=== PATIENT | female | born 1970 | race Caucasian/White ===

== ENCOUNTER 2024-12-19 11:38 | Outpatient (CLI) | payer OTHER, SELFPAY ==
--- OUTSIDE RECORDS SUMMARY | 2024-12-20 12:54 | XMS_ITS | Clinical Summary ---
Author Organization [facility] Address [address] [place] [address] Phone Care Team Providers Care Creeler Name Role Phone FREDO TOSCANO MD Primary Care Provider [phone] Reason for Visit and Chief Complaint [facility] CENTER CHECK UP Problems Includes: Problems addressed during this encounter and other active Problems All Visits Onset Date Resolved Date Provider Condition S tatus Ovarian Cyst 06/08/2011 MILAGROS WHITE P-BC Active Last Documented On 9:16AM ; [facility] Plan of Treatment No Plan of Treatment Recorded Assessments Includes: Assessments from this encounter No Assessments Recorded Medical Equipment - Implanted Devices Includes: Current Devices No Medical Equipment Recorded Medications Includes: Medications discussed during this encounter and other current Medications Current Medications (continue as prescribed) Metoprolol Succinate ER 25 M G Oral Tablet Extended Release 24 Hour 07/07/2022 Provider: Diagnosis: 1/2 a tab daily Last Documented On 07/07/2022 9:24AM By Geri BENJAMIN ; [facility] QC Tumeric Complex 500 MG Oral Capsule 07/07/2022 Pr ovider: Diagnosis: Last Documented On 07/07/2022 9:25AM By Geri BENJAMIN ; [facility] Osteo Bi-Flex One Per Day Oral Tablet 07/07/2022 Pro vider: Diagnosis: Last Documented On 07/07/2022 9:25AM By Geri BENJAMIN ; [facility] Medications Administered Includes: Administered Medications from this encounter No Administered Medications Recorded Results Includes: Results discussed during this encounter No Results Recorded For Specified Dates History of Present Illness Includes: History of Present Illness from this encounter No History of Present Illness Recorded Social History No Social History Recorded - Smoking Status Unknown Medical History Includes: Medical History addressed during this encounter No Medical History Recorded Family History Includes: Family History addressed during this encounter No Family History Recorded Review of Systems Includes: Review of Systems from this encounter No Review of Systems Recorded Mental Status Includes: Mental Status from this encounter No Mental Status Recorded Functional Status Includes: Functional Status from this encounter No Functional Status Recorded Physical Exam Includes: Physical Exam from this encounter No Physical Exam Recorded Allergies Includes: Active Allergies Substance Type Reaction Onset Date Resolved Date Statu s Biaxin Allergy Nausea, Vomiting , Diarrhea / Diarrheal disorder 11/24/2013 Active Last Documented On 3 10:28AM ; [facility] Insurance Includes: Active Insurance Policies Plan Name Member ID Group # Subscriber Relationship Effect yennifer Dates - [facility] [id number] EDY PINTO Self Clinical Notes Includes: Clinical Notes from this encounter No Clinical Notes Recorded
--- OUTSIDE RECORDS SUMMARY | 2024-12-20 12:54 | XMS_ITS | Clinical Summary ---
Author Organization [facility] Address [address] [place] [address] Phone Care Team Providers Care Chainstitch Tunnel Elastic Operator Name Role Phone CjAlisha Refugio MARTINEZ Primary Care Provider [phone] Candido House MD Unavailable [phone] 2 Medications metoprolol Succinate (TOPROL-XL) 25 MG TABLET SR 24 HR Take 25 mg by mouth 2 times daily. Active fluticasone (FLONASE) 50 MCG/ACT Suspension 1-2 Sprays by Nasal route daily. Use in each nostril as directed. Active Boswellia-Gluco samine-Vit D (OSTEO BI-FLEX ONE PER DAY PO) Take by mouth daily as needed. Active cetirizine (ZyrTEC Allergy) 10 MG Tablet Take 10 mg by mouth daily. Active methylPREDNISol one (MEDROL DOSPACK) 4 MG Tablet Therapy PackIndications :Dizziness,Hear ing loss of right ear, unspecified hearing loss type,Pressure sensation in ear, right Use as per instructions on package. 21 Tablet Active Encounters Date Type Department Care Team Description 12/16/2024 Telephone [facility] [address] [place] [address] Candido House MD Care Management 12/10/2024 9:30 AM CDT Office Visit [facility] [address] [id number] Candido House MD Dizziness (Primary Dx); Hearing loss of right ear, unspecified hearing loss type; Pressure sensation in ear, right Discharge Disposition: Discharged to home or Selfcare 12/10/2024 Travel from Last 3 Months Social History Tobacco Use Types Packs/Day Years Used Date Smoking Tobacco: Never Smokeless Tobacco: Never Tobacco Cessation:Counseling Given: Not Answered Alcohol Use Standard Drinks/Week Comments Not Currently 0 (1 standard drink = 0.6 oz pur e alcohol) Sexually Active Control Partners Comments Yes Comments No Sex and Gender Information Value Date Recorded Sex Assigned at Not on file Legal Sex Female 11:16 PM CDT Gender Identity Not on file Sexual Orientation Not on file Last Filed Vital Signs Vital Sign Reading Time Taken Comments Blood Pressure 134/98 12/10/2024 9:37 AM CDT Pulse 81 12/10/2024 9:37 AM CDT Temperature 36.9 C (98.5 F) 12/10/2024 9:37 AM CDT Respiratory Rate - - Oxygen Saturation 100% 12/10/2024 9:37 AM CDT Inhaled Oxygen Concentration - - Weight 85.6 kg (188 lb 12.8 oz) 12/10/2024 9:37 AM CDT Height 175.3 cm (5' 9 ) 12/10/2024 9:37 AM CDT Body Mass Index 27.88 12/10/2024 9:37 AM CDT Plan of Treatment Upcoming Encounters Date Type Department Care Team (Late st Contact Info) Description 12/24/2024 10:00 AM CDT Office Visit [facility] [address] [phone] Candido House MD [address] [address] Health Maintenance Due Date Last Done Comments Hepatitis C Virus (HCV) Screening 1970 TdaP Immunization 1970 Hepatitis B Immunization (1 of 3 - 19+ 3-dose series) 02/03/1988 Colonoscopy 2014 Colorectal Cancer Screening 2014 Cologuard 2019 Immunochemical Fecal Occult Blood 2019 Pneumococcal Immunization (50+ years) (1 of 1 - PCV) 2019 Zoster Immunization (1 of 2) 2019 SARS-COV-2 Immunization (1 - 2023- season) 2024 Mammogram 12/09/2024 12/10/2023, 04/0 02/2023, 11/02/2021, Additional history exists Influenza Immunization (Season Ended) 2025 Respiratory Syncytial Virus (RSV) Immunization (Adult) (1 - 1-dose 75+ series) 02/03/2044 Meningococcal Immunization (ACWY) Aged Out No longer eligible based on patient's age to complete this topic Rotavirus Immunization Aged Out No lo nger eligible based on patient's age to complete this topic Procedures Procedure Name Priority Date/Time Associated Diagnosis Comments TYMPANOMETRY Routine 12/10/2024 9:30 AM CDT Pressure sensation in ear, right [facility] SCREENING BILATERAL DIGITAL W CAD W LEIA Routine 11/05/2017 11:59 AM CDT Encounter for screening mammogram for malignant neoplasm of breast from Last 3 Months or Most Recently Relevant to Health Maintenance Results * TYMPANOMETRY (12/10/2024 9:30 AM CDT) Narrative Miriam Barnes MA - 12/10/2024 9:30 AM CDT Candido House MD 12/10/2024 10:32 AM Tympanometry: Right ear: type A curve with normal external canal volume, -3 dapa, ipsilateral reflex absent Left ear: type A curve with normal external canal volume, 3 dapa , ipsilateral reflex absent Procedure Note Candido House MD - 12/10/2024 9:30 AM CDT Tympanometry: Right ear: type A curve with normal external canal volume, -3 dapa,ipsilateral reflex absent Left ear: type A curve with normal external canal volume, 3 dapa ,ipsilateral reflex absent Candido House MD NE - OTORHINOLARYNGOLOGIC Final Result * [facility] SCREENING BILATERAL DIGITAL W CAD W LEIA (11/05/2017 11:59 AM CDT) Anatomical Region Laterality Modality breast Bilateral Mammography 11/05/2017 11:3 6 AM CDT Narrative 11/05/2017 5:18 PM CDT - [facility] SCREENING BILATERAL DIGITAL W CAD W LEIA BILATERAL DIGITAL SCREENING MAMMOGRAM 3D/2D WITH CAD WITH MEDIOLATERAL OBLIQUE CRANIOCAUDAL: 11/05/2017 The study was acquired using digital technology and interpreted from soft copy. Current study was also evaluated with ICAD version 7.2. CLINICAL: Routine screening. Patient has no complaints. No personal history of cancer. Sister with breast cancer. COMPARISONS: Comparison is made to exams dated: 08/24/2016, 07/22/2015, and 04/30/2014 [facility]. BREAST TISSUE:The tissue of both breasts is extremely dense, which lowers the sensitivity of mammography. FINDINGS: No significant masses, calcifications, or other findings are seen in either breast. There has been no significant interval change. IMPRESSION: BI-RAD 1 NEGATIVE There is no mammographic evidence of malignancy. A 1 year screening mammogram is recommended. The patient has been or will be contacted. The patient will be entered into a reminder system with a target due date of 1 year for her next screening exam. Electronically signed by: Mart Monroe M.D. bs/hilda:11/05/2017 13:36:36 Survey Manager: Mei Ruiz(Terrence), [facility] letter sent: Normal Exam Reading location: [facility] BI-RADS: 1 Negative Procedure Note Mart Monroe MD - 11/05/2017 - [facility] SCREENING BILATERAL DIGITAL W CAD W LEIA BILATERAL DIGITAL SCREENING MAMMOGRAM 3D/2D WITH CAD WITH MEDIOLATERAL OBLIQUE CRANIOCAUDAL: 11/05/2017 The study was acquired using digital technology and interpreted from soft copy. Current study was also evaluated with ICAD version 7.2. CLINICAL: Routine screening. Patient has no complaints. No personal history of cancer. Sister with breast cancer. COMPARISONS: Comparison is made to exams dated: 08/24/2016, 07/22/2015, and 04/30/2014 [facility]. BREAST TISSUE:The tissue of both breasts is extremely dense, which lowers the sensitivity of mammography. FINDINGS: No significant masses, calcifications, or other findings are seen in either breast. There has been no significant interval change. IMPRESSION: BI-RAD 1 NEGATIVE There is no mammographic evidence of malignancy. A 1 year screening mammogram is recommended. The patient has been or will be contacted. The patient will be entered into a reminder system with a target due date of 1 year for her next screening exam. Electronically signed by: Mart Monroe M.D. bs/penrad:11/05/2017 13:36:36 Survey Manager: Mei Ruiz(R), [facility] letter sent: Normal Exam Reading location: [facility] BI-RADS: 1 Negative Teressa Flowers MD IMG MAMMO ORDERABLE S Final Result from Last 3 Months or Most Recently Relevant to Health Maintenance Insurance MEDICAID [employer] Care Teams Chainstitch Tunnel Elastic Operator Relationship Specialty Start Date End Date Alisha Corona PAC [address] [place] [address] PCP - General Family Medicine 09/24/19 [place] [address] Consulting Physician Otolaryngology 12/09/24
--- OUTSIDE RECORDS SUMMARY | 2024-12-20 12:54 | XMS_ITS | Clinical Summary ---
Author Organization [facility] Address [address] [place] [address] Phone Care Team Providers Care Business Account Specialist Name Role Phone FREDO TOSCANO MD Primary Care Provider [phone] Reason for Visit and Chief Complaint The Chief Complaint is: pt had sinus issues since last Sunday, pt took OTC medication and was feeling better. Yesterday she started to have left ear pain Problems Includes: Problems addressed during this encounter and other active Problems All Visits Onset Date Resolved Date Provider Condition S tatus Ovarian Cyst 06/08/2011 MILAGROS HERBERT Active Last Documented On 2 9:16AM ; [facility] Plan of Treatment No Plan of Treatment Recorded Assessments Includes: Assessments from this encounter Findings - [J32.9 - Chronic sinusitis, unspecified] Sinusitis - Last Documented On 01/22/2023 11:12AM ; [facility] Medical Equipment - Implanted Devices Includes: Current Devices No Medical Equipment Recorded Medications Includes: Medications discussed during this encounter and other current Medications New / Renewed during this visit MILAGROS PENNINGTON on 01/22/2023 Azithromycin 250 MG Oral Tablet Provider: MILAGROS PENNINGTON 5 day supply: 6 tablet, 0 refills Diagnosis: Chronic sinusitis, unspecified take as directed 2 tabs on d ay one then one tab on days 2-5 Pharmacy: [facility] - [address] [place] [address], [id number] - Last Documented On 3 10:59AM By MILAGROS PENNINGTON ; [facility] Current Medications (continue as prescribed) Metoprolol Succinate ER 25 M G Oral Tablet Extended Release 24 Hour 07/07/2022 Provider: Diagnosis: 1/2 a tab daily Last Documented On 07/07/2022 9:24AM By Geri BENJAMIN ; [facility] QC Tumeric Complex 500 MG Oral Capsule 07/07/2022 Pr ovider: Diagnosis: Last Documented On 07/07/2022 9:25AM By Geri BENJAMIN ; [facility] Osteo Bi-Flex One Per Day Oral Tablet 07/07/2022 Pro vider: Diagnosis: Last Documented On 07/07/2022 9:25AM By Geri BENJAMIN ; [facility] Medications Administered Includes: Administered Medications from this encounter No Administered Medications Recorded Vital Signs Includes: Vital Signs from this encounter Vital Name 01/22/2023 10:28A Blood Pressure Sitting L 160/100 BP Cuff Size Regular Pulse Rate-Sitting (bpm) 76 Height (in) 69 Weight (lb) 203 Body Mass Index 30 Body Surface Area 2.1 Oxygen Saturation (%) 96 Last Documented: On 01/22/2023 10:32A M ; [facility] Results Includes: Results discussed during this encounter No Results Recorded For Specified Dates History of Present Illness Includes: History of Present Illness from this encounter KAREN PINTO is a 52 year old female. Source of patient information was patient ? Allergy list reviewed ? Problem list reviewed ? Medication list reviewed - Feeling fine - Sinus pain - Sinus pressure - No chest pain or discomfort - No dyspnea - No cough Social History Description Last Updated Tobacco non-user 07/07/2022 Last Documented On 3 10:28AM ; [facility] Smoking Status Unknown Procedures and Surgical History Includes: Procedures from this encounter Procedures Code Diagnosis Performing Provider Service L ocation Service Date use of tobacco assessment performed 1000F Last Documented On 3 10:32AM ; [facility] review of medications documented 1160F Last Documented On 3 10:32AM ; [facility] Medical History Includes: Medical History addressed during this encounter Description Last Updated Pt gets blood pressure checked at other facility 09/29/2019 Last Documented On 3 10:28AM ; [facility] GI problems 11/24/2013 Last Documented On 3 10:28AM ; [facility] Family History Includes: Family History addressed during this encounter Description Last Updated Paternal history of family history of he art disease 09/15/2019 Last Documented On 3 10:28AM ; [facility] Family history of hypertension 0 Last Documented On 3 10:28AM ; [facility] Review of Systems Includes: Review of Systems from this encounter Systemic: No fever. Head: Sinus pain and sinus pressure. Otolaryngeal: Earache. No sore throat. Pulmonary: No cough. Gastrointestinal: No abdominal pain. Mental Status Includes: Mental Status from this encounter No Mental Status Recorded Functional Status Includes: Functional Status from this encounter No Functional Status Recorded Physical Exam Includes: Physical Exam from this encounter Allergies Includes: Active Allergies Substance Type Reaction Onset Date Resolved Date Statu s Biaxin Allergy Nausea, Vomiting , Diarrhea / Diarrheal disorder 11/24/2013 Active Last Documented On 3 10:28AM ; [facility] Encounters Encounter Provider Location Date Check-In Time Check-Out Time Diagnosis PROBLEM VISIT MILAGROS AVILA [facility] 01/23/20 23 10:28AM 10:52AM Sinusitis Insurance Includes: Active Insurance Policies Plan Name Member ID Group # Subscriber Relationship Effect yennifer 1 - [facility] [id number] EDY PINTO Self Clinical Notes Includes: Clinical Notes from this encounter * Progress note Date Encounter Last Documented by 01/22/2023 PROBLEM VISIT Last documented on 01/22/2023; 11:12 AM, MILAGROS PENNINGTON; [facility] Active Problems & Conditions - Ovarian Cyst Chief Complaint The Chief Complaint is: Pt had sinus issues since last Sunday, pt took OTC medication and was feeling better. Yesterday she started to have left ear pain. History of Present Illness EDY PINTO is a 52 year old female. Source of patient information was patient - Allergy list reviewed - Problem list reviewed - Medication list reviewed - Feeling fine - Sinus pain - Sinus pressure - No chest pain or discomfort - No dyspnea - No cough Current Medication - Metoprolol Succinate ER 25 MG Oral Tablet Extended Release 24 Hour 1/2 a tab daily, 0 days, 0 refills - Osteo Bi-Flex One Per Day Oral Tablet One tablet twice a day 0 days, 0 refills - QC Tumeric Complex 500 MG Oral Capsule One tablet daily 0 days, 0 refills Past Medical/Surgical History Reported: Recent Events: Pt gets blood pressure checked at other facility. Medical: GI problems. Social History Tobacco use: Tobacco non-user. Allergies - Biaxin Reaction: , Diarrhea / Diarrheal disorder Family History Systemic hypertension Paternal: Heart disease Review Of Systems Systemic: No fever. Head: Sinus pain and sinus pressure. Otolaryngeal: Earache. No sore throat. Pulmonary: No cough. Gastrointestinal: No abdominal pain. Physical Findings - Vitals taken 01/22/2023 10:28 am BP-Sitting L 160/100 mmHg BP Cuff Size Regular Pulse Rate-Sitting 76 bpm Height 69 in Weight 203 lbs Body Mass Index 30 kg/m2 Body Surface Area 2.1 m2 Oxygen Saturation 96 % General Appearance: - Well developed. - In no acute distress. Ears: Right Ear: Tympanic Membrane: - Serous exudate behind tympanic membrane. - Normal. Left Ear: Tympanic Membrane: - Serous exudate behind tympanic membrane. - Normal. Nose: General/bilateral: Cavity: - Nasal turbinate hypertrophied. Sinus Tenderness: - Tenderness of sinuses. Lymph Nodes: - Normal. Lungs: - Clear to auscultation. Cardiovascular: Heart Rate And Rhythm: - Normal. Abdomen: Palpation: - No direct tenderness in the abdomen. Assessment - [J32.9 - Chronic sinusitis, unspecified] Sinusitis Discussed Use Nasal Saline daily. OK to take OTC meds, only Coricidin if you have Hypertension. Call for any problems. Rest, drink plenty of fluids. Plan StartCited - Chronic sinusitis, unspecified Azithromycin 250 MG tablet take as directed 2 tabs on day one then one tab on days 2-5, 5 days, 0 refills EndCited Practice Management Use of tobacco assessment performed Review of medications documented. Health Reminders - Assess BMI satisfied 01/22/2023. - Assess Need for CT Lung Screen satisfied 01/22/2023. - Assess Tobacco Use satisfied 01/22/2023.
--- OUTSIDE RECORDS SUMMARY | 2024-12-20 12:54 | XMS_ITS ---
Care Plan - [facility] Created on: December 20, 2024 EDY PINTO : 1970 Sex: Female Author Organization [facility] Address [address] [place] [address] Phone Care Team Providers Care Patient Escort Name Role Phone FREDO TOSCANO MD Primary Care Provider [phone]
--- OUTSIDE RECORDS SUMMARY | 2024-12-20 12:54 | XMS_ITS ---
Author Organization [facility] Address [address] [place] [address] Phone Care Team Providers Care Almond Pan Finisher Name Role Phone FREDO TOSCANO MD Primary Care Provider [phone] Problems Includes: Active, inactive, and resolved Problems All Visits Onset Date Resolved Date Provider Condition S tatus Ovarian Cyst 06/08/2011 MILAGROS WHITE P-BC Active Last Documented On 2 9:16AM ; [facility] Plan of Treatment Findings Encounter Date Ordered patient will call fo r appointment as needed CHECK UP with MILAGROS AVILA FURNACE HAND-BC 07/07/2022 Last Documented On 2 12:54PM ; [facility] Ordered return to the clinic if condition worsens or new symptoms arise CHECK UP with MILAGROS WHITEP-BC 07/07/2022 Last Documented On 2 12:54PM ; [facility] Ordered return to the clinic if condition worsens or new symptoms arise Follow up in 2 weeks for recheck 2 WK CK-UP with EMILY TYSON PA-C 09/29/2019 Last Documented On 0 1:49PM ; [facility] Ordered return to the clinic if condition worsens or new symptoms arise Follow up in 2 weeks for recheck PROBLEM VISIT with EMILY TYSON PA-C 09/15/2019 Last Documented On 0 11:14AM ; [facility] Ordered patient will call fo r appointment as needed SICK VISIT with MILAGROS AVILA FURNACE HAND-BC 09/11/2016 Last Documented On 7 4:37PM ; [facility] Ordered return to the clinic if condition worsens or new symptoms arise SICK VISIT with MILAGROS Samantha AUSTIN WAHL-BLANCA 09/11/2016 Last Documented On 7 4:37PM ; [facility] Ordered return to the clinic if condition worsens or new symptoms arise SICK VISIT with EMILY Huff JAH POTTS-C 08/30/2015 Last Documented On 6 9:22AM ; [facility] Ordered return to the clinic if condition worsens or new symptoms arise PROBLEM VISIT with EMILY Huff JAH POTTS-C 12/31/2013 Last Documented On 4 1:52PM ; [facility] Referrals To Diagnosis Product Designer Abdmnal Pain Unsf Site Last Documented On 4 1:00PM ; [facility] 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[employer] MANAGEMENT SPECIALIST Essential ( primary) hypertension Last Documented On 0 9:52AM ; [facility] Instructions to patient Recommend diet and exercise at least 30 min three times per week Last Documented On 0 9:46AM ; [facility] Recommend diet and exercise at least 30 min three times per week Last Documented On 0 11:12AM ; [facility] Instructions for patient Last Documented On 7 4:35PM ; [facility] Go to the emergency room if condition worsens Last Documented On 4 9:49AM ; [facility] Go to the emergency room if condition worsens Last Documented On 4 11:34AM ; [facility] Education and Decision Aids were provided during visit for: Dietary counseling pertainin g to obesity Last Documented On 0 9:46AM ; [facility] Dietary counseling pertainin g to obesity Last Documented On 0 11:12AM ; [facility] Patient education about anti biotics: need to finish even if feeling better Last Documented On 6 9:22AM ; [facility] Assessments Includes: Assessments for all patient encounters Findings Encounter Date Sinusitis PROBLEM VISIT with MILAGROS WAHL-BLANCA 01/22/2023 Last Documented On 3 11:12AM ; [facility] Routine adult history and ph ysical (18 - 64 yrs) CHECK UP with MILAGROS AVILA FURNACE HAND-BC 07/07/2022 Last Documented On 2 12:54PM ; [facility] Benign essential hypertension 2 WK CK-UP with ME LEILANI Huff JAH PA-C 09/29/2019 Last Documented On 0 1:49PM ; [facility] Benign essential hypertension PROBLEM VISIT with EMILY Huff JAH PA-C 09/15/2019 Last Documented On 0 11:14AM ; [facility] Acute upper respiratory infection SICK V ISIT with MILAGROS AVILA FURNACE HAND-BC 09/11/2016 Last Documented On 7 4:37PM ; [facility] Acute sinusitis SICK VISIT with EMILY Huff NATALI MALIK PA-C 08/30/2015 Last Documented On 6 9:22AM ; [facility] Assessment of abdominal pain PROBLEM VISIT with EMILY Huff JAH PA-C 12/31/2013 Last Documented On 4 1:52PM ; [facility] Assessment of abdominal pain NEW PATIENT VISIT with EMILY Huff JAH PA-C 11/24/2013 Last Documented On 4 11:37AM ; [facility] Gallbladder disease NEW PATIENT VISIT with NANCIE Huff JAH PA-C 11/24/2013 Last Documented On 4 11:37AM ; [facility] Instructions Includes: Instructions for all patient encounters Instructions to patient Recommend diet and exercise at least 30 min three times per week Last Documented On 0 9:46AM ; [facility] Recommend diet and exercise at least 30 min three times per week Last Documented On 0 11:12AM ; [facility] Instructions for patient Last Documented On 7 4:35PM ; [facility] Go to the emergency room if condition worsens Last Documented On 4 9:49AM ; [facility] Go to the emergency room if condition worsens Last Documented On 4 11:34AM ; [facility] Education and Decision Aids were provided during visit for: Dietary counseling pertainin g to obesity Last Documented On 0 9:46AM ; [facility] Dietary counseling pertainin g to obesity Last Documented On 0 11:12AM ; [facility] Patient education about anti biotics: need to finish even if feeling better Last Documented On 6 9:22AM ; [facility] Medical Equipment - Implanted Devices Includes: Current and historical Devices No Medical Equipment Recorded Medications Includes: Current and historical Medications Current Medications (continue as prescribed) Metoprolol Succinate ER 25 M G Oral Tablet Extended Release 24 Hour 07/07/2022 Provider: Diagnosis: 1/2 a tab daily Last Documented On 07/07/2022 9:24AM By Geri BENJAMIN ; [facility] QC Tumeric Complex 500 MG Oral Capsule 07/07/2022 Pr ovider: Diagnosis: Last Documented On 07/07/2022 9:25AM By Geri BENJAMIN ; [facility] Osteo Bi-Flex One Per Day Oral Tablet 07/07/2022 Pro vider: Diagnosis: Last Documented On 07/07/2022 9:25AM By Geri BENJAMIN ; [facility] Past Medications on file Azithromycin 250 MG Oral Tablet 01/22/2023 - 01/27/2023 Provider: MILAGROS PENNINGTON Diagnosis: Chronic sinusiti s, unspecified take as directed 2 tabs on d ay one then one tab on days 2-5 Last Documented On 3 10:59AM By MILAGROS PENNINGTON ; [facility] Toprol XL 25 MG Oral Tablet Extended Release 24 Hour 09/15/2019 - 07/07/2022 Provider: EMILY TYSON PA-C Diagnosis: Essential (prima ry) hypertension One tablet daily Last Documented On 07/07/2022 9:23AM By Geri BENJAMIN ; [facility] Augmentin 875-125MG Oral Tablet 09/11/2016 - 07/07/2022 Provider: MILAGROS PENNINGTON Diagnosis: Acute frontal sinusitis, unspecified One tablet twice a day Last Documented On 07/07/2022 9:17AM By Geri BENJAMIN ; [facility] Flonase Allergy Relief 50 MCG/ACT Suspension 08/30/2015 - 07/07/2022 Provider: EMILY TYSON PA-C Diagnosis: Acute frontal sinusitis, unspecified 2 sprays each nostril once daily Last Documented On 07/07/2022 9:17AM By Geri BENJAMIN ; [facility] Augmentin 875-125 MG Tablet 08/30/2015 - 09/11/2016 Provider: EMILY TYSON PA-C Diagnosis: Acute frontal sinusitis, unspecified One tablet twice a day Last Documented On 7 4:37PM By MILAGROS [facility] ; [facility] raNITIdine HCl 150 MG OR TABS 01/08/2014 - 08/30/2015 Provider: EMILY HURST CH, PA-C Diagnosis: Last Documented On 08/30/2015 9:04AM By PARIS BENJAMIN ; [facility] Bentyl 20 MG OR TABS 12/31/2013 - 08/30/2015 Provider: EMILY HURST CH, PA-C Diagnosis: Abdmnal Pain Uns pcf Site prior to meals and qHS Last Documented On 08/30/2015 9:03AM By PARIS BENJAMIN ; [facility] Omeprazole 40 MG OR CPDR 12/26/2013 - 12/26/2013 Provider: EMILY TYSON PA-C Diagnosis: Abdmnal Pain Uns pcf Site Last Documented On 4 3:10PM By EMILY TYSON PA-C ; [facility] Omeprazole 40 MG OR CPDR 12/26/2013 - 08/30/2015 Provider: EMILY TYSON PA-C Diagnosis: Abdmnal Pain Uns pcf Site Last Documented On 08/30/2015 9:04AM By PARIS BENJAMIN ; [facility] Dexilant 60 MG OR CPDR 12/17/2013 - 08/30/2015 Provider: EMILY HURST CH, PA-C Diagnosis: Abdmnal Pain Uns pcf Site Last Documented On 08/30/2015 9:04AM By PARIS BENJAMIN ; [facility] [place] 5-325 MG OR TABS 12/17/2013 - 08/30/2015 Provider: EMILY HURST CH, PA-C Diagnosis: DIS OF GALLBLADD ER NOS Last Documented On 08/30/2015 9:04AM By PARIS BENJAMIN ; [facility] Zofran ODT 4 MG OR TBDP 12/17/2013 - 08/30/2015 Provider: EMILY HURST CH, PA-C Diagnosis: DIS OF GALLBLADD ER NOS Last Documented On 08/30/2015 9:05AM By PARIS BENJAMIN ; [facility] Zofran ODT 4 MG OR TBDP 11/24/2013 - 12/17/2013 Provider: EMILY HURST CH, PA-C Diagnosis: DIS OF GALLBLADD ER NOS Last Documented On 4 9:31AM By EMILY TYSON PA-C ; [facility] [place] 5-325 MG OR TABS 11/24/2013 - 12/17/2013 Provider: EMILY HURST CH, PA-C Diagnosis: DIS OF GALLBLADD ER NOS Last Documented On 4 9:31AM By EMILY TYSON PA-C ; [facility] Dexilant 60 MG OR CPDR 11/24/2013 - 12/17/2013 Provider: EMILY HURST CH, PA-C Diagnosis: Abdmnal Pain Uns pcf Site Last Documented On 4 9:31AM By EMILY TYSON PA-C ; [facility] Medications Administered Includes: Administered Medications in patient's chart No Administered Medications Recorded Results Includes: Results from 12/21/2023 through 12/20/2024 No Results Recorded For Specified Dates History of Present Illness History of Present Illness not supported for this document type No History of Present Illness Recorded Social History Description Last Updated Tobacco non-user 07/07/2022 Last Documented On 2 12:54PM ; [facility] Not a current smoker 09/15/2019 Last Documented On 0 11:14AM ; [facility] Smoking status : Never smoker 11/24/2013 Last Documented On 4 1:52PM ; [facility] Medical History Includes: Medical History in patient's chart Description Last Updated Pt gets blood pressure checked at other facility 09/29/2019 Last Documented On 0 1:49PM ; [facility] No history of atherosclerosis of extremi ties 09/15/2019 Last Documented On 0 11:14AM ; [facility] No history of congestive heart failure 0 09/15/2019 Last Documented On 0 11:14AM ; [facility] No history of diabetes mellitus 09/15/19 20 Last Documented On 0 11:14AM ; [facility] No history of hyperlipidemia 09/15/2019 Last Documented On 0 11:14AM ; [facility] No history of prior myocardial infarctio n 09/15/2019 Last Documented On 0 11:14AM ; [facility] No history of renal failure 09/15/2019 Last Documented On 0 11:14AM ; [facility] No history of thyroid disorder 0 Last Documented On 0 11:14AM ; [facility] No gallbladder disease 12/31/2013 Last Documented On 4 1:52PM ; [facility] GI problems 11/24/2013 Last Documented On 4 1:52PM ; [facility] Family History Includes: Family History in patient's chart Description Last Updated Paternal history of family history of he art disease 09/15/2019 Last Documented On 0 11:14AM ; [facility] Family history of hypertension 0 Last Documented On 0 11:14AM ; [facility] Review of Systems Review of Systems not supported for this document type No Review of Systems Recorded Mental Status No Mental Status Recorded Functional Status No Functional Status Recorded Physical Exam Physical Exam not supported for this document type No Physical Exam Recorded Allergies Includes: Active, inactive, and resolved Allergies Substance Type Reaction Onset Date Resolved Date Statu s Biaxin Allergy Nausea, Vomiting , Diarrhea / Diarrheal disorder 11/24/2013 Active Last Documented On 3 10:28AM ; [facility] Insurance Includes: Active Insurance Policies Plan Name Member ID Group # Subscriber Relationship Effect yennifer Dates - [facility] [id number] EDY PINTO Self Clinical Notes Includes: Signed Clinical Notes starting from 09/08/2022 No Clinical Notes Recorded
--- OUTSIDE RECORDS SUMMARY | 2024-12-20 12:54 | XMS_ITS | Clinical Summary ---
Author Organization [facility] Address [address] [place] [address] Phone Care Team Providers Care Logistics Tech Name Role Phone FREDO TOSCANO MD Primary Care Provider [phone] Reason for Visit and Chief Complaint [facility] CHECK UP Problems Includes: Problems addressed during this encounter and other active Problems All Visits Onset Date Resolved Date Provider Condition S tatus Ovarian Cyst 06/08/2011 MILAGROS WHITE P-BC Active Last Documented On 9:16AM ; [facility] Plan of Treatment No Plan of Treatment [...] On 07/07/2022 9:24AM By Geri BENJAMIN ; [facility] QC Tumeric Complex 500 MG Oral Capsule 07/07/2022 Pr ovider: Diagnosis: Last Documented On 07/07/2022 9:25AM By Geri BENJAMIN ; [facility] Osteo Bi-Flex One Per Day Oral Tablet 07/07/2022 Pro vider: Diagnosis: Last Documented On 07/07/2022 9:25AM By Geri BENJAMIN ; [facility] Medications Administered Includes: Administered [...] Active Last Documented On 3 10:28AM ; [facility] Encounters Encounter Provider Location Date Check-In Time Check- Out Time Diagnosis HEART CENTER CHECK UP TERESA AKBAR MD [facility]- 2 11:00AM 11:32AM Insurance Includes: Active Insurance Policies Plan Name Member ID Group # Subscriber Relationship Effect yennifer Dates - [facility] [id number] EDY PINTO Self Clinical Notes Includes: Clinical Notes from this encounter No Clinical Notes Recorded
--- OUTSIDE RECORDS SUMMARY | 2024-12-20 12:54 | XMS_ITS | Referral Summary ---
Author Organization [facility] [address] Address [address] [email or web address] [address] Phone Care Team Providers Care Grain Combiner Name Role Phone Ailyn Baeza NP Primary Care Provider [phone] Encounters Date Type Department Care Team Description 11/20/2024 Orders Only [facility] [email or web address] [place] [id number] Anali Barnes DO Encounter for screening mammogram for malignant neoplasm of breast (Primary Dx) 11/20/2024 10:15 AM CDT Office [facility] [email or web address] [place] [id number] Anali Barnes DO Encounter for annual routine gynecological examination (Primary Dx); Encounter for screening mammogram for malignant neoplasm of breast from Last 3 Months Allergies Active Allergy Reactions Criticality Noted Date Comments Clarithromycin Nausea And Vomiting,Diarrhea Low 02/2014 Ibuprofen Stomach upset Low Medications metoprolol XL (TOPROL-XL) 25 mg extended release tablet 0 Active hydrocortisone 2.5 % cream Apply topically 2 (two) times a day 30 g 1 4 Active Additional Information Patient not taking.Reported on 11/20/2024 Active Problems No known active problems Social History Tobacco Use Types Packs/Day Years Used Date Smoking Tobacco: Never Smokeless Tobacco: Never Tobacco Cessation:Counseling Given: Not Answered Alcohol Use Standard Drinks/Week Comments Yes 0 (1 standard drink = 0.6 oz pur e alcohol) Comments No Sex and Gender Information Value Date Recorded Sex Assigned at Not on file Legal Sex Female 7:33 PM FIELD CASE MANAGER Gender Identity Not on file Sexual Orientation Not on file Occupation Industry Job Start Date Job End Date homemaker Not on file Not on file Not on file Last Filed Vital Signs Vital Sign Reading Time Taken Comments Blood Pressure 140/78 11/20/2024 10:10 AM CDT Pulse 82 08/02/2017 11:19 AM FIELD CASE MANAGER Temperature 36 C (96.8 F) 09/13/2020 9:58 AM FIELD CASE MANAGER Respiratory Rate 16 08/02/2017 11:19 AM FIELD CASE MANAGER Oxygen Saturation 98% 08/02/2017 11:19 AM FIELD CASE MANAGER Inhaled Oxygen Concentration - - Weight 87.1 kg (192 lb) 11/20/2024 10:10 AM CDT Height 177.8 cm (5' 10 ) 11/20/2024 10:10 AM CDT Body Mass Index 27.55 11/20/2024 10:10 AM CDT Plan of Treatment Not on file Procedures Procedure Name Priority Date/Time Associated Diagnosis Comments SCREENING MAMMOGRAM BILATERAL W UMBERTO Schedule Routine, Read Routine (OP Routine) 12/10/2023 10:31 AM CDT Encounter for screening mammogram for malignant neoplasm of breast HIGH RISK HPV DNA DETECTION WITH GENOTYPING Routine 10/01/2023 12:16 PM FIELD CASE MANAGER Screening for malignant neoplasm of cervix from Last 3 Months or Most Recently Relevant to Health Maintenance Results * Screening Mammogram Bilateral W Umberto (12/10/2023 10:31 AM CDT) Anatomical Region Laterality Modality Breast Bilateral Mammography 12/10/2023 10:4 5 AM CDT Impressions 12/10/2023 10:45 AM CDT There is no mammographic evidence of malignancy. A 1 year screening mammogram is recommended. BI-RADS: 1 - Negative. The patient has been or will be contacted. The patient will be entered into a reminder system with a target due date of 1 year for her next mammogram. Electronically signed by: Trevor Herzog M.D. Narrative 12/10/2023 10:45 AM CDT EXAMINATION: SCREENING MAMMOGRAM BILATERAL W UMBERTO ORDERING HEALTHCARE PROVIDER: ANALI BARNES HISTORY: Routine screening mammography. COMPARISON: 11/24/2022, 11/02/2021, 10/27/2020, 10/22/2019, 11/05/2017 TECHNIQUE: CC and MLO views of the bilateral breasts were obtained with digital technique using breast tomosynthesis with C view. Computer aided detection was utilized. FINDINGS: DENSITY: The tissue of the bilateral breasts is heterogeneously dense, which may obscure small masses. BREASTS: There are no suspicious masses, suspicious calcifications, or other suspicious findings in either breast. There has been no suspicious interval change. us Anali Barnes DO IMG MAMMO PROCEDURES Fi nal Result * High Risk HPV DNA Detection with Genotyping (Molecular component) (10/01/2023 12:16 PM FIELD CASE MANAGER) HPV HR 16 Not Detected Not Detected [facility] Comment:Testing performed by : [facility], [address] [place] [address] HPV HR 18 Not Detected Not Detected [facility] Comment:Testing performed by : [facility], [address] [place] [address] HPV HR Non 16/18 Not Detected Not Detected [facility] Comment: Interpretive Data Nucleic acid amplification for detection of high-risk Human Papilloma virus (HPV) is performed by the Herb Lynn 6800 HPV test. This assay specifically detects HPV-16 and HPV-18 genotypes. The following HPV genotypes are detected as high-risk HPV: HPV-31, 33, 35, ,39, 45, 51, 52, 56, 58, 59, 66, and 68. This assay has been approved by the [place] Food and Drug Administration for detection of HPV in cervical specimens collected by a physician using an endocervical brush/spatula or cervical broom and placed in the ThinPrep Pap Test PreservCyt collection containers. The performance characteristics of this test have been verified by the [facility] Molecular Infectious Disease laboratory. Correlate with separately reported cytology results, as applicable. Interpretive data last revised 23 Testing performed by: [facility], [address] [facility], [place]., [address] Endocervical 10/01/2023 12:1 6 PM FIELD CASE MANAGER 10/02/2023 12:22 PM FIELD CASE MANAGER Lyudmila AP[facility]INAR KING - 10/03/2023 7:26 AM FIELD CASE MANAGER Clinical history and diagnosis->Liquid-based PAP test with high risk HPV test- Z12.4 Number of vials->1 Testing type->Screening Last menstrual period (date if known)->NA Menstrual status->Postmenopausal Anali Barnes DO LAB BODY FLUIDS AND STO OLS ORDERABLES Final Result [facility] [id number] Department [place] [address] from Last 3 Months or Most Recently Relevant to Health Maintenance Insurance [facility] Care Teams Grain Combiner Relationship Specialty Start Date End Date Ailyn Baeza NP [address] [place] [address] PCP - General Nurse Practitioner 10/24/23
--- OUTSIDE RECORDS SUMMARY | 2024-12-20 12:54 | XMS_ITS | Clinical Summary ---
Author Organization [facility] Address [address] [place] [address] Phone Care Team Providers Care Compotype Operator Name Role Phone FREDO TOSCANO MD Primary Care Provider [phone] Reason for Visit and Chief Complaint The Chief Complaint is: Check up appt- no concerns Problems Includes: Problems addressed during this encounter and other active Problems All Visits Onset Date Resolved Date Provider Condition S tatus Ovarian Cyst 06/08/2011 MILAGROS WHITE P-BLANCA Active Last Documented On 9:16AM ; [facility] Plan of Treatment - Return to the clinic if condition worsens or new symptoms arise - Last Documented On 07/10/2022 12:54PM ; [facility] - Patient will call for appointment as needed - Last Documented On 07/10/2022 12:54PM ; [facility] Assessments Includes: Assessments from this encounter Findings - [Z00.00 - Encounter for general adult medical examination without abnormal findings] Routine adult history and physical (18 - 64 yrs) - Last Documented On 07/10/2022 12:54PM ; [facility] Medical Equipment - Implanted Devices Includes: Current Devices No Medical Equipment Recorded Medications Includes: Medications discussed during this encounter and other current Medications Discontinued / Stopped on this date EMILY TYSON PA-C on 09/15/2019 Toprol XL 25 MG Oral Tablet Extended Release 24 Hour Provider: EMILY Cole Diagnosis: Essential (prima ry) hypertension Last Documented On 07/07/2022 9:23AM By Geri BENJAMIN ; [facility] Augmentin 875-125MG Oral Tablet Provider: MILAGROS WAHL-BC Diagnosis: Acute frontal si nusitis, unspecified Last Documented On 07/07/2022 9:17AM By Geri BENJAMIN ; [facility] Flonase Allergy Relief 50 MCG/ACT Suspension Provider: EMILY Cole Diagnosis: Acute frontal si nusitis, unspecified Last Documented On 07/07/2022 9:17AM By Geri BENJAMIN ; [facility] Current Medications (continue as prescribed) Metoprolol Succinate ER 25 M G Oral Tablet Extended Release 24 Hour 07/07/2022 Provider: Diagnosis: 1/2 a tab daily Last Documented On 07/07/2022 9:24AM By Geri BENJAMIN ; [facility] QC Tumeric Complex 500 MG Oral Capsule 07/07/2022 Pr ovider: Diagnosis: Last Documented On 07/07/2022 9:25AM By Geri BENJAMIN ; [facility] Osteo Bi-Flex One Per Day Oral Tablet 07/07/2022 Pro vider: Diagnosis: Last Documented On 07/07/2022 9:25AM By Geri BENJAMIN ; [facility] Past Medications on file Azithromycin 250 MG Oral Tablet 01/22/2023 - 01/27/2023 Provider: MILAGROS PENNINGTON Diagnosis: Chronic sinusiti s, unspecified take as directed 2 tabs on d ay one then one tab on days 2-5 Last Documented On 3 10:59AM [facility] ; [facility] Medications Administered Includes: Administered Medications from this encounter No Administered Medications Recorded Vital Signs Includes: Vital Signs from this encounter Vital Name 07/07/2022 09:21A Blood Pressure Sitting L 132/82 BP Cuff Size Large Pulse Rate-Sitting (bpm) 66 Height (in) 69 Weight (lb) 199 Body Mass Index 29.4 Body Surface Area 2.1 Oxygen Saturation (%) 96 Last Documented: On 07/07/2022 9:27AM ; [facility] Results Includes: Results discussed during this encounter No Results Recorded For Specified Dates History of Present Illness Includes: History of Present Illness from this encounter KAREN PINTO is a 52 year old female. Source of patient information was patient ? Allergy list reviewed ? Problem list reviewed ? Medication list reviewed - Feeling fine - No fever - No chills - No headache - No chest pain or discomfort - No palpitations - The heart rate was not fast - No dyspnea - No cough - Normal appetite - No nausea - No vomiting - No abdominal pain Social History Description Last Updated Tobacco non-user 07/07/2022 Last Documented On 2 12:54PM ; [facility] Smoking Status Unknown Procedures and Surgical History Includes: Procedures from this encounter Procedures Code Diagnosis Performing Provider Service L ocation Service Date use of tobacco assessment performed 1000F Last Documented On 2 9:27AM ; [facility] standardized depression screening: negative for symptoms 3351F Last Documented On 2 9:39AM ; [facility] review of medications documented 1160F Last Documented On 2 9:27AM ; [facility] screening for adult depression: impressi on and score 0 Last Documented On 2 9:39AM ; [facility] Clinical summary provided to patient Last Documented On 2 12:53PM ; [facility] Medical History Includes: Medical History addressed during this encounter Description Last Updated Pt gets blood pressure checked at other facility 09/29/2019 Last Documented On 2 9:17AM ; [facility] GI problems 11/24/2013 Last Documented On 2 9:17AM ; [facility] Family History Includes: Family History addressed during this encounter Description Last Updated Paternal history of family history of he art disease 09/15/2019 Last Documented On 2 9:17AM ; [facility] Family history of hypertension 0 Last Documented On 2 9:17AM ; [facility] Review of Systems Includes: Review of Systems from this encounter Systemic: No fever. Head: No headache. Cardiovascular: No chest pain or discomfort. Pulmonary: No cough. Gastrointestinal: No abdominal pain. Mental Status Includes: Mental Status from this encounter Description Oriented to time, place, and person Functional Status Includes: Functional Status from this encounter No Functional Status Recorded Physical Exam Includes: Physical Exam from this encounter Allergies Includes: Active Allergies Substance Type Reaction Onset Date Resolved Date Statu s Biaxin Allergy Nausea, Vomiting , Diarrhea / Diarrheal disorder 11/24/2013 Active Last Documented On 3 10:28AM ; [facility] Encounters Encounter Provider Location Date Check-In Time Check-Out Time Diagnosis CHECK UP MILAG[facility] 2 9:14AM 9:52AM Routine History and Physical Adult (18 - 64 Yrs) Insurance Includes: Active Insurance Policies Plan Name Member ID Group # Subscriber Relationship Effect yennifer Dates 1 - [facility] [id number] EDY PINTO Self Clinical Notes Includes: Clinical Notes from this encounter No Clinical Notes Recorded
--- OUTSIDE RECORDS SUMMARY | 2024-12-20 12:54 | XMS_ITS | Clinical Summary ---
Author Organization [facility] Address [address] [place] [address] Phone Care Team Providers Care Fishing Manager Name Role Phone FREDO TOSCANO MD Primary Care Provider [phone] Reason for Visit and Chief Complaint [facility] CHECK UP Problems Includes: Problems addressed during this encounter and other active Problems All Visits Onset Date Resolved Date Provider Condition S tatus Ovarian Cyst 06/08/2011 MILAGROS WHITE P-BC Active Last Documented On 9:16AM ; [facility] Plan of Treatment No Plan of [...] On 07/07/2022 9:24AM By Geri BENJAMIN ; [facility] QC Tumeric Complex 500 MG Oral Capsule 07/07/2022 Pr ovider: Diagnosis: Last Documented On 07/07/2022 9:25AM By Geir BENJAMIN ; [facility] Osteo Bi-Flex One Per Day Oral Tablet 07/07/2022 Pro vider: Diagnosis: Last Documented On 07/07/2022 9:25AM By Geri BENJAMIN ; [facility] Medications Administered Includes: Administered Medications from [...] Active Last Documented On 3 10:28AM ; [facility] Encounters Encounter Provider Location Date Check-In Time Check- Out Time Diagnosis [facility] CHECK UP [facility]- 3 9:39AM 10:16AM Insurance Includes: Active Insurance Policies Plan Name Member ID Group # Subscriber Relationship Effect yennifer Dates - [facility] [id number] EDY PINTO Self Clinical Notes Includes: Clinical Notes from this encounter No Clinical Notes Recorded
--- OUTSIDE RECORDS SUMMARY | 2024-12-20 12:54 | XMS_ITS | Clinical Summary ---
Author Organization [facility] [address] Address [address] [place] [address] Phone Care Team Providers Care Customs Opener Verifier Packer Name Role Phone Ailyn Baeza NP Primary Care Provider [phone] Allergies Active Allergy Reactions Criticality Noted Date Comments Clarithromycin Nausea And Vomiting,Diarrhea Low 02/2014 Ibuprofen Stomach upset Low Medications metoprolol XL (TOPROL-XL) 25 mg extended release tablet 0 Active hydrocortisone 2.5 % cream Apply topically 2 (two) times a day 30 g 1 4 Active Additional Information Patient not taking.Reported on 11/20/2024 Active Problems No known active problems Encounters Date Type Department Care Team Description 11/20/2024 10:15 AM CDT Office Visit [facility] [address] [place] [address] Kate Barnes DO Encounter for annual routine gynecological examination (Primary Dx); Encounter for screening mammogram for malignant neoplasm of breast 11/20/2024 Orders Only [facility] [address] [place] [address] Kate Barnes DO Encounter for screening mammogram for malignant neoplasm of breast (Primary Dx) from Last 3 Months Surgical History Surgery Date Site/Laterality Comments LAPAROSCOPIC CHOLECYSTECTOMY 08/20/2013 - 08/19/2014 ENDOMETRIAL ABLATION W/ NOVASURE 08/20/2015 - 08/19/2016 SALPINGECTOMY 08/20/2015 - 08/19/2016 Bilateral laparoscopic salpingectomy for sterilization OOPHORECTOMY tubes removed Medical History Medical History Date Comments History of indigestion Family History Medical History Relation Name Comments Hypertension Father Heart attack Maternal Grandfather Hyperlipidemia Maternal Grandfather Hypertension Maternal Grandfather Throat cancer Maternal Grandfather Osteoporosis Maternal Grandmother Hyperlipidemia Mother Hypertension Mother Cancer Paternal Grandfather metasta tic, ? primary Diabetes Paternal Grandfather Hypertension Paternal Grandfather Diabetes Paternal Grandmother Hyperlipidemia Paternal Grandmother Hypertension Paternal Grandmother Stroke Paternal Grandmother Hypertension Sister 1 Breast cancer Sister 2 Multiple sclerosis Sister 2 Ovarian cancer Neg Hx Thyroid cancer Neg Hx Relation Name Status Comments Father Maternal Grandfather Maternal Grandmother Mother Paternal Grandfather Paternal Grandmother Sister 1 Sister 2 Social History Tobacco Use Types Packs/Day Years Used Date Smoking Tobacco: Never Smokeless Tobacco: Never Tobacco Cessation:Counseling Given: Not Answered Alcohol Use Standard Drinks/Week Comments Yes 0 (1 standard drink = 0.6 oz pur e alcohol) Comments No Sex and Gender Information Value Date Recorded Sex Assigned at Not on file Legal Sex Female 7:33 PM RADIO OFFICER Gender Identity Not on file Sexual Orientation Not on file Occupation Industry Job Start Date Job End Date homemaker Not on file Not on file Not on file Obstetrics History Para Term AB IAB SAB Ectopic Multiple Livin g Live Births 2 2 2 0 0 0 0 0 0 0 0 Date Outcome GA Total Labor Labor/2nd/3rd Weight Sex Type Anes PTL Shanique A1 A5 Name Clin Term Term Last Filed Vital Signs Vital Sign Reading Time Taken Comments Blood Pressure 140/78 11/20/2024 10:10 AM CDT Pulse 82 08/02/2017 11:19 AM RADIO OFFICER Temperature 36 C (96.8 F) 09/13/2020 9:58 AM RADIO OFFICER Respiratory Rate 16 08/02/2017 11:19 AM RADIO OFFICER Oxygen Saturation 98% 08/02/2017 11:19 AM RADIO OFFICER Inhaled Oxygen Concentration - - Weight 87.1 kg (192 lb) 11/20/2024 10:10 AM CDT Height 177.8 cm (5' 10 ) 11/20/2024 10:10 AM CDT Body Mass Index 27.55 11/20/2024 10:10 AM CDT Plan of Treatment Health Maintenance Due Date Last Done Comments Colon Cancer Screening-Colonoscopy 1969 Depression Screening 1969 Hepatitis C Screening 1969 DTaP/Tdap/Td Vaccine (1 - Tdap) 02/03/1980 Hepatitis B Screening 1987 Zoster Vaccine (1 of 2) 2019 Cervical Cancer Screening 10/01/20242023, 10/01/2023, 09/03/2018, Additional history exists Breast Cancer Screening-Mammogram 12/09/2024 12/10/2023, 11/24/2022, 11/02/2021, Additional history exists Influenza Vaccine (Season Ended) 2025 Regular Well Visit/Exam 18-64 11/20/2025 11/20/2024, 10/01/2023, 09/25/2022, Additional history exists Pneumococcal vaccine <65 Aged Out No longer eligible based on patient's age to complete this topic Procedures Procedure Name Priority Date/Time Associated Diagnosis Comments SCREENING MAMMOGRAM BILATERAL W UMBERTO Schedule Routine, Read Routine (OP Routine) 12/10/2023 10:31 AM CDT Encounter for screening mammogram for malignant neoplasm of breast HIGH RISK HPV DNA DETECTION WITH GENOTYPING Routine 10/01/2023 12:16 PM RADIO OFFICER Screening for malignant neoplasm of cervix from [...] MAMMOGRAM BILATERAL W UMBERTO ORDERING HEALTHCARE PROVIDER: KATE BARNES HISTORY: Routine screening mammography. COMPARISON: 11/24/2022, [...] has been no suspicious interval change. us Kate Barnes DO IMG MAMMO PROCEDURES Fi nal Result * High Risk HPV DNA Detection with Genotyping (Molecular component) (10/01/2023 12:16 PM RADIO OFFICER) HPV HR 16 Not Detected Not Detected [facility] Comment:Testing performed by : [facility], [address] [place]., [address] HPV HR 18 Not Detected Not Detected [facility] Comment:Testing performed by : [facility], [address] [place]., [address] HPV HR Non 16/18 Not Detected Not Detected [facility] Comment: Interpretive Data Nucleic acid amplification for [...] this test have been verified by the [facility] laboratory. Correlate with separately reported cytology results, as applicable. Interpretive data last revised 23 Testing performed by: [facility], [address] [place]., [address] Endocervical 10/01/2023 12:1 6 PM RADIO OFFICER 10/02/2023 12:22 PM RADIO OFFICER Narrative [facility] MALIK - 10/03/2023 7:26 AM RADIO OFFICER Clinical history and diagnosis->Liquid-based PAP test with high risk HPV test- Z12.4 Number of vials->1 Testing type->Screening Last menstrual period (date if known)->NA Menstrual status->Postmenopausal Kate Barnes DO LAB BODY FLUIDS AND STO OLS ORDERABLES Final Result [facility] [id number] [address] Department of Laboratories [place] [phone] from Last 3 Months or Most Recently Relevant to Health Maintenance Insurance [facility] OTHER Address: [address] [place] [id number] [facility] Care Teams Customs Opener Verifier Packer Relationship Specialty Start Date End Date Ailyn Baeza NP [address] [place] [address] PCP - General Nurse Practitioner 10/24/23
== END 2024-12-19 11:39 | disposition home or self-care (01) ==
PROVIDERS: Visit Provider Otolaryngology Otolaryngology/Facial Plastic Surgery
DX: R42 Dizziness and giddiness (principal); H91.91 Unspecified hearing loss, right ear; H83.8X1 Other specified diseases of right inner ear
CPT/HCPCS: 92557; 92567